=== PATIENT | female | born 1990 | race Caucasian/White ===

== ENCOUNTER → 2016-09-27 | Outpatient (CLI) | payer MEDICAID ==
--- NOTE | 2016-09-27 19:43 | CT ---
EXAMINATION TYPE: CT ChestAbdPelvis w con DATE OF EXAM: 09/27/2016 7:29 PM COMPARISON: NONE HISTORY: Pt states of follow up for lung nodules. CT DLP: 457.9 mGycm Automated exposure control for dose reduction was used. CONTRAST: CT scan of the chest, abdomen and pelvis is performed with Oral Contrast and with IV Contrast, patien t injected with 100 mL of Omnipaque 300. FINDINGS: There are numerous bilateral nodular infiltrates in both lungs that measure up to 15 mm. Nodules have predominantly low density. Some of the nodules are calcified. Heart size is normal. There is mild pe ctus excavatum chest deformity. There is a mild thoracic dextroscoliosis. There is no pleural effusio n. There is no pericardial effusion. There are no hilar masses. Thoracic aorta appears normal. I see no filling defects in the pulmonary arteries. Liver spleen pancreas and gallbladder appear normal. Bile ducts are not dilated. There is no adrenal mass. Kidneys have normal size and contour. There is no hydronephrosis. There is no retroperitoneal a denopathy. I see no intestinal wall thickening. There are no dilated loops. Bladder distends smoothly . There is no sign of a pelvic mass. Bony structures in the lumbosacral spine appear intact. Uterus i s anteverted. There is no ascites. IMPRESSION: Numerous nodular pulmonary infiltrates are relatively small and consistent with old granu lomatous disease. There is not a significant change compared to last CT scan of 03/27/2015. Normal hea rt. Mild pectus excavatum chest deformity. No evidence of any acute lung disease. Negative CT scan of the abdomen and pelvis.
== END | disposition home or self-care (01) ==
LOC: RADCTMAIN 18:59
PROVIDERS: ATTEND Internal Medicine Hematology & Oncology
DX: C78.00 Secondary malignant neoplasm of unspecified lung (principal); D48.0 Neoplasm of uncertain behavior of bone and articular cartilage; Q67.6 Pectus excavatum
CPT/HCPCS: 71260; 74177; Q9967

== ENCOUNTER → 2016-10-02 | Outpatient (CLI) | payer MEDICAID ==
[~2016-10-02] MED LIST: DENOSUMAB 120 MG/1.7 ML VIAL SQ ONE
[2016-10-02 13:19] VITALS: BP 121/58; PULSE 94; RESP 16; TEMP 97.8
== END | disposition home or self-care (01) ==
LOC: EDSTATUS 13:00 → PROCWHC3 13:04
PROVIDERS: ATTEND Internal Medicine Hematology & Oncology
DX: C40.22 Malignant neoplasm of long bones of left lower limb (principal)
CPT/HCPCS: 96372; J0897

== ENCOUNTER → 2016-10-31 | Outpatient (CLI) | payer MEDICAID ==
[2016-10-31 10:58] VITALS: BP 108/73; PULSE 98; RESP 18; TEMP 98.2
== END | disposition home or self-care (01) ==
LOC: PROCWHC3 10:28
PROVIDERS: ATTEND Internal Medicine Hematology & Oncology
DX: C40.22 Malignant neoplasm of long bones of left lower limb (principal)
CPT/HCPCS: 96372; J0897

== ENCOUNTER 2024-05-04 10:16 | Inpatient (IN) | payer BC ==
[2024-05-04] MEDS ORDERED: METHYLERGONOVINE 0.2 MG/ML 1 ML AMP IM PRN (10:25)
[2024-05-04] MEDS ORDERED: OXYTOCIN 10 UNIT/ML 1 ML VIAL IM PRN (10:25)
[2024-05-04] MEDS ORDERED: TRANEXAMIC 1,000 MG/100ML-NACL 1,000 MG in EMPTY BAG 1 BAG IV PRN (10:25)
[2024-05-04] MEDS ORDERED: CARBOPROST TROMETHAMINE 250 MCG/ML 1 ML AMP IM PRN (10:25)
[2024-05-04] MEDS ORDERED: miSOPROStoL 200 MCG TAB PO PRN (10:25)
[2024-05-04] MEDS ORDERED: OXYTOCIN 30 UNITS/500 ML NS 30 UNIT in SALINE 1 500ML.BAG IV SCH (10:30)
[2024-05-04] MEDS: LACTATED RINGERS 1,000 ML IV SCH (11:01)
[2024-05-04] MEDS: CITRIC ACID-SODIUM CITRATE 15 ML CUP PO ONE (11:02)
[2024-05-04 11:03] LABS: Basophils % (A) 0 %; Eosinophils # (A) 0.2 k/uL (0-0.7); Eosinophils % (A) 1 %; HCT 38.4 % (34.0-46.0); HGB 13.1 gm/dL (11.4-16.0); Lymphocytes # (A) 1.8 k/uL (1.0-4.8); Lymphocytes % (A) 14 %; MCH 31.4 pg (25.0-35.0); MCHC 34.1 g/dL (31.0-37.0); MCV 91.9 fL (80.0-100.0); Monocytes # (A) 0.7 k/uL (0-1.0); Monocytes % (A) 5 %; Neutrophils # (A) 10.3 k/uL (1.3-7.7); Neutrophils % (A) 78 %; Platelet Count 335 k/uL (150-450); RBC 4.18 m/uL (3.80-5.40); RDW 14.4 % (11.5-15.5); WBC 13.3 k/uL (3.8-10.6)
[2024-05-04 11:28] LABS: Glucose,Whole Blood 77 mg/dL (70-110)
[2024-05-04] MEDS ORDERED: OXYTOCIN 30 UNITS/500 ML NS BAG IV ONE (12:07)
[2024-05-04] MEDS ORDERED: NALBUPHINE 10 MG/ML (10 ML MDV) ONE (12:07)
[2024-05-04] MEDS ORDERED: MORPHINE SULFATE (PF) 0.3 MG/0.3 ML SYR ONE (12:07)
[2024-05-04] MEDS ORDERED: KETOROLAC 15 MG/ML 1 ML VIAL ONE (12:07)
--- NOTE | 2024-05-04 13:10 | P.HPOB ---
History of Present Illness H&P Date: 05/04/24 Chief Complaint: Breech presentation at term This is a 34-year-old 2 para 0010 woman with an estimated due date of 05/16/2024 who is admitted for primary low transverse section secondary to breech presentation with a history of gestational diabetes, polyhydramnios and maternal tobacco use. Please see the record for details. Nic breech presentation has been noted throughout the third trimester and is confirmed at the bedside today. Indication for delivery at 38 weeks is history of gestational diabetes. She has had good control with diet alone throughout the . She does have approximately 24 cm of fluid on ultrasound. Laboratory data: Blood type AB+, antibody screen negative, rubella immune, VDRL nonreactive, hepatitis B surface antigen negative, HCV antibodies nonreactive, HIV negative, group B strep negative. Past medical history: Maternal tobacco use, genital condyloma past surgical history giant cell tumor removal 2013 from her leg. Past social history positive for tobacco use, she is single, father of the baby minimally involved. Review of Systems All systems: negative Past Medical History Additional Past Medical History / Comment(s): Benign giant cell tumor History of Any Multi-Drug Resistant Organisms: None Reported Additional Past Surgical History / Comment(s): left leg tumor removed. lung biopsy Past Anesthesia/Blood Transfusion Reactions: No Reported Reaction Past Psychological History: No Psychological Hx Reported Smoking Status: Current every day smoker Past Alcohol Use History: None Reported Past Drug Use History: None Reported - Past Family History Mother Family Medical History: No Reported History Additional Family Medical History / Comment(s): liver disease Medications and Allergies Home Medications Medication Instructions Recorded Confirmed Type HYDROcodone/APAP 10-325MG [[place] 1 tab PO QID PRN 05/04/15 12/03/16 History 10-325] Calcium Carbonate [Calcium] 600 mg PO DAILY 06/15/15 12/03/16 History Allergies Allergy/AdvReac Type Severity Reaction Status Date / Time No Known Allergies Allergy Verified 05/04/24 10:25 Exam Vital Signs Temp Pulse Resp BP Pulse Ox 05/04/24 10:24 97.1 F L 93 18 162/72 98 Intake and Output 05/03/24 05/04/24 05/04/24 22:59 06:59 14:59 Other: Weight 92.533 kg Targeted physical exam is performed. Nic breech presentation was confirmed by bedside ultrasound. HEENT exam is unremarkable. Her breathing is unlabored and her heart is a regular rate and rhythm. The abdomen is gravid, soft and nontender with size equal to gestational age, 1+ bilateral lower extremity edema. Pelvic exam is deferred. heart tones are category 1 by external monitoring. Results Result Diagrams: 05/04/24 10:55 Abnormal Lab Results - Last 24 Hours (Table) 05/04/24 Range/Units 10:55 WBC 13.3 H (3.8-10.6) k/uL Neutrophils # 10.3 H (1.3-7.7) k/uL Assessment and Plan (1) 38 weeks gestation of Current Visit: Yes Status: Acute Code(s): Z3A.38 - 38 WEEKS GESTATION OF SNOMED Code(s): 16821675 (2) Breech presentation Current Visit: Yes Status: Acute Code(s): O32.1XX0 - MATERNAL CARE FOR BREECH PRESENTATION, UNSP SNOMED Code(s): 2372842 (3) Advanced maternal age (AMA) in Current Visit: Yes Status: Acute Code(s): BDH4747 - SNOMED Code(s): 344397995 (4) Gestational diabetes Current Visit: Yes Status: Acute Code(s): O24.419 - GESTATIONAL DIABETES MELLITUS IN , UNSP CONTROL SNOMED Code(s): 17881569 (5) Tobacco abuse Current Visit: Yes Status: Acute Code(s): Z72.0 - TOBACCO USE SNOMED Code(s): 527794331 Plan: 34-year-old 2 para 0010 woman who is admitted for primary low transverse section at 38 weeks secondary to breech presentation with an indication for delivery of gestational diabetes. She's been counseled regarding the procedure in the office setting including the risks: Bleeding, transfusion, infection, damage to bowel, bladder, ureters, infant and/or other structures. Her blood sugars have been very well controlled throughout the . heart tones are currently reassuring by external monitoring.
[2024-05-04] MEDS ORDERED: LANOLIN CREAM 1 GM TUBE TOPICAL PRN (13:13)
[2024-05-04] MEDS ORDERED: diphenhydrAMINE 50 MG/ML 1 ML VIAL IVP PRN ×2 (13:13)
[2024-05-04] MEDS ORDERED: HYDROcodone/APAP 5-325MG 1 EACH TAB PO PRN (13:13)
[2024-05-04] MEDS ORDERED: diphenhydrAMINE 50 MG CAP PO PRN (13:13)
[2024-05-04] MEDS ORDERED: HYDROCORTISONE 2.5% RECTAL CREAM 30 GM TUBE RECTAL PRN (13:13)
[2024-05-04] MEDS ORDERED: BENZOCAINE/MENTHOL SPRAY 1 GM/SPRAY AEROSOL TOPICAL PRN (13:13)
[2024-05-04] MEDS ORDERED: ZOLPIDEM 5 MG TAB PO PRN (13:13)
[2024-05-04] MEDS ORDERED: diphenhydrAMINE 25 MG CAP PO PRN (13:13)
[2024-05-04] MEDS ORDERED: SIMETHICONE 80 MG CHEWABLE PO PRN (13:13)
--- NOTE | 2024-05-04 13:13 | P.OP ---
Date of Procedure: 05/04/24 Preoperative Diagnosis: 38 weeks intrauterine Tanika breech presentation Gestational diabetes Advanced maternal age Maternal tobacco use Postoperative Diagnosis: Same Procedure(s) Performed: Primary low transverse section Anesthesia: spinal Surgeon: Stefanie Keating Lead Ramp Agent #1: Michell Sanon Estimated Blood Loss (ml): 440 IV fluids (ml): 400 Urine output (ml): 50 Pathology: none sent Condition: stable Disposition: floor Indications for Procedure: Tanika breech presentation Operative Findings: Female infant in the tanika breech presentation with Apgars of 8 at 1 minute and 9 at 5 minutes weighing 6 lbs. 13 oz., 3080 g. Intact, three-vessel cord placenta. Normal-appearing uterus with bilateral fallopian tubes and ovaries. Description of Procedure: After the patient was met preoperatively and all questions were answered, she was taken to the operating room where spinal anesthetic was administered without incident. She was then positioned, prepped and draped in the dorsal supine position with a leftward tilt. Ferris catheter was placed. After anesthetic was confirmed adequate, a low transverse skin incision was made following the pre- existing scar. This was carried down to the underlying fascia both sharply and with the electrocautery. The fascia was then incised in the midline and extended bilaterally with the Arambula scissors. The superior aspect of the fascial incision was elevated and the underlying rectus muscles dissected off sharply and with the electrocautery. The inferior aspect of the fascial incision was also elevated and the underlying rectus muscles dissected off sharply. The muscles were adherent in the midline. These were bluntly and the peritoneum was tented up with hemostats. The peritoneum was entered sharply with the Metzenbaum scissors. The peritoneal incision was extended inferiorly and superiorly with good visualization of the bladder. The bladder blade was pl aced. The vesicouterine peritoneum was identified, tented up and entered sharply, the bladder flap was created both sharply and digitally. A low transverse uterine incision was then made sharply and carried down to the underlying amniotic membranes. Membranes were ruptured and clear fluid was noted. The uterine incision was extended bilaterally bluntly. The 's breech was delivered from the incision without difficulty. The rest of the infant was delivered onto the field without difficulty. And cut and the was taken to the warmer. An intact, three-vessel cord placenta was then manually removed and the uterus was exteriorized. The uterus was cleared of all clot and debris. The uterine incision was delineated with Upton clamps. The uterine incision was then closed in a running locked fashion with 0 Vicryl suture. Second imbricating layer of the same suture was placed Additional [id number] sutures were placed where necessary along the incision for hemostasis. The uterus was then returned to the abdomen and the gutters were cleared of all clot and debris. The uterine incision was reinspected and Bovie electrocautery was utilized were necessary for hemostasis. The fascial edges, peritoneal edges and rectus muscles were inspected and Bovie electrocautery utilized were necessary for hemostasis. Mariah powder was placed along a bleeding area on the rectus muscle and hemostasis was achieved. The fascia was then closed in a running fashion with 0 Vicryl suture. The subcuticular tissue was copiously suction irrigated and Bovie electrocautery utilized were necessary for hemostasis. 3-0 Vicryl suture was utilized to reapproximate the subcuticular tissue. The skin was then closed in a subcutaneous fashion with 4- 0 Vicryl suture. All counts reported to me as correct by the operating room staff at the end of the procedure. The patient received antibiotics preoperatively and Pitocin following cord clamp. Mother and were both transported from the room in stable condition.
[2024-05-04] MEDS: ACETAMINOPHEN TAB 325 MG TAB PO PRN (15:27)
[2024-05-04] MEDS: IBUPROFEN 600 MG TAB PO SCH (15:30)
[2024-05-04] MEDS: SENNOSIDES-DOCUSATE SODIUM 1 EACH TAB PO SCH (19:34)
[2024-05-05 03:56] LABS: Basophils % (A) 0 %; Eosinophils # (A) 0.1 k/uL (0-0.7); Eosinophils % (A) 1 %; HCT 33.9 % (34.0-46.0); HGB 11.5 gm/dL (11.4-16.0); Lymphocytes # (A) 2.4 k/uL (1.0-4.8); Lymphocytes % (A) 11 %; MCH 32.3 pg (25.0-35.0); MCHC 34.1 g/dL (31.0-37.0); MCV 94.9 fL (80.0-100.0); Mean Platelet Volume 7.8; Monocytes # (A) 1.2 k/uL (0-1.0); Monocytes % (A) 5 %; Neutrophils # (A) 17.9 k/uL (1.3-7.7); Neutrophils % (A) 82 %; Platelet Count 334 k/uL (150-450); RBC 3.57 m/uL (3.80-5.40); RDW 14.2 % (11.5-15.5)
--- NOTE | 2024-05-05 06:44 | P.PN ---
Progress Note - Text Progress Note Date: 05/05/24 Postoperative day 1 status post section under spinal anesthesia, and intrathecal morphine given for postoperative analgesia, patient doing well, there is no anesthesia related complications, Patient had no headache, vital signs stable , Assessment and plan= postop day 1 status post , doing well there is no anesthesia related complication.
--- NOTE | 2024-05-05 16:21 | P.PNOBGPC ---
Subjective - Subjective Principal diagnosis: Postoperative day 1 Interval history: Feeling very well. Minimal pain. Tolerating a general diet. Patient reports: Reports appetite normal, Reports voiding normally, Reports pain well controlled, Reports ambulating normally, Denies nauseated : nursing well Objective - Vital Signs Latest vital signs: Vital Signs Temp Pulse Pulse Resp BP Pulse Ox 05/05/24 12:00 98.3 F 86 16 112/53 98 05/05/24 08:00 97.5 F L 85 16 104/66 99 05/05/24 04:00 98 F 76 18 106/66 97 05/05/24 00:00 98.5 F 75 16 121/72 98 05/04/24 20:00 98.9 F 85 18 115/64 94 L 05/04/24 17:00 98.0 F 84 16 105/57 Intake and Output 05/05/24 05/05/24 05/05/24 06:59 14:59 22:59 Intake Total 780 Output Total 200 Balance 580 Intake: Oral 780 Output: Urine 200 Other: # Voids 1 2 - Exam Extremities: Present: normal, edema Abdomen: Present: normal appearance, soft. Absent: tenderness Incision: Present: normal, dry, intact. Absent: erythematous Uterus: Present: normal, firm. Absent: tenderness - Labs Labs: Abnormal Lab Results - Last 24 Hours (Table) 05/05/24 Range/Units 03:39 WBC 22.0 H (3.8-10.6) k/uL RBC 3.57 L (3.80-5.40) m/uL Hct 33.9 L (34.0-46.0) % Neutrophils # 17.9 H (1.3-7.7) k/uL Monocytes # 1.2 H (0-1.0) k/uL Assessment and Plan (1) 38 weeks gestation of Current Visit: Yes Status: Acute Code(s): Z3A.38 - 38 WEEKS GESTATION OF SNOMED Code(s): 81486103 (2) Breech presentation Current Visit: Yes Status: Acute Code(s): O32.1XX0 - MATERNAL CARE FOR BREECH PRESENTATION, UNSP SNOMED Code(s): 4224966 (3) Advanced maternal age (AMA) in Current Visit: Yes Status: Acute Code(s): FYF4832 - SNOMED Code(s): 791125836 (4) Gestational diabetes Current Visit: Yes Status: Acute Code(s): O24.419 - GESTATIONAL DIABETES MELLITUS IN , UNSP CONTROL SNOMED Code(s): 86753051 (5) Tobacco abuse Current Visit: Yes Status: Acute Code(s): Z72.0 - TOBACCO USE SNOMED Code(s): 173265595 (6) S/P section Current Visit: Yes Status: Acute Code(s): Z98.891 - HISTORY OF UTERINE SCAR FROM PREVIOUS SURGERY SNOMED Code(s): 864566894 Plan: Postop day 1 status post primary low transverse section for breech presentation and history of gestational diabetes. Recovering extremely well. Anticipate discharge home tomorrow morning. Routine care.
[2024-05-06 00:51] VITALS: TEMP 98.3
--- NOTE | 2024-05-06 08:27 | P.DS ---
Providers Date of admission: 05/04/24 10:16 Expected date of discharge: 05/06/24 Attending physician: Stefanie Keating Primary care physician: Stated None - Discharge Diagnosis(es) (1) 38 weeks gestation of Current Visit: Yes Status: Acute (2) Breech presentation Current Visit: Yes Status: Acute (3) Advanced maternal age (AMA) in Current Visit: Yes Status: Acute (4) Gestational diabetes Current Visit: Yes Status: Acute (5) Tobacco abuse Current Visit: Yes Status: Acute (6) S/P section Current Visit: Yes Status: Acute Hospital Course: This is a 34-year-old 2 now para 1011 woman who was admitted at 38+ weeks gestation for primary low transverse section secondary to breech presentation and history of gestational diabetes. Please see the admission history and physical for details. Following admission she went to the operating room where she underwent an uncomplicated primary low transverse section. Findings at the time of surgery were significant for infant in the tanika breech presentation. Apgars 8 at 1 minute and 9 at 5 minutes weight 6 lbs. 13 oz. Patient's course was entirely unremarkable. By postoperative day #1 she was ambulating and voiding without difficulty and tolerating a general diet. She had minimal lochia and her laboratory data was within normal limits. By postoperative day #2 she continued to do well. Her incision appeared well healing. Her lochia was minimal. She was ambulating and voiding without difficulty. She was therefore discharged home with routine instructions for postoperative care and follow-up. Procedures: Primary low transverse section Patient Condition at Discharge: Good Plan - Discharge Summary New Discharge Prescriptions: New Ibuprofen [Motrin] 600 mg PO Q6H tab Acetaminophen Tab [Tylenol] 650 mg PO Q4HR PRN tab PRN Reason: Mild Pain Or Fever >= 100.5 No Action HYDROcodone/APAP 10-325MG [[place] 10-325] 1 tab PO QID PRN PRN Reason: Pain Calcium Carbonate [Calcium] 600 mg PO DAILY Discharge Medication List HYDROcodone/APAP 10-325MG [[place] 10-325] 1 tab PO QID PRN 05/04/15 [History] Calcium Carbonate [Calcium] 600 mg PO DAILY 06/15/15 [History] Acetaminophen Tab [Tylenol] 650 mg PO Q4HR PRN tab 05/06/24 [Rx] Ibuprofen [Motrin] 600 mg PO Q6H tab 05/06/24 [Rx] Follow up Appointment(s)/Referral(s): Stefanie Keating MD [STAFF PHYSICIAN] - 05/18/24 9:30 am (Post appointment 06-15-2024 at 9:45) Activity/Diet/Wound Care/Special Instructions: Follow-up in 2 weeks after surgery in the office. Call the office with any concerning signs or symptoms including fever greater than 101, severe abdominal pain, heavy vaginal bleeding, signs of wound infection, increased swelling or redness of the lower extremities, signs of depression. No driving for 2 weeks after surgery. No heavy lifting or vigorous activity until reevaluated in the office. No intercourse for 6 weeks after delivery. Discharge Disposition: HOME SELF-CARE
[2024-05-06 08:42] VITALS: BP 119/76; PULSE 69; RESP 18
== END 2024-05-06 10:15 | disposition home or self-care (01) | DRG 788 ==
LOC: 4FBP 10:16
PROVIDERS: ADMIT Obstetrics & Gynecology; ATTEND Obstetrics & Gynecology
PROC: 10D00Z1 Extraction of Products of Conception, Low, Open Approach (ICD-10-PCS; principal; 2024-05-04 12:00)
DX: O32.1XX0 Maternal care for breech presentation, not applicable or unspecified (principal); F17.200 Nicotine dependence, unspecified, uncomplicated; O24.429 Gestational diabetes mellitus in childbirth, unspecified control; O99.334 Smoking (tobacco) complicating childbirth; Z37.0 Single live birth; Z3A.38 38 weeks gestation of pregnancy